=== PATIENT | male | born 1960 | race Caucasian/White ===

== ENCOUNTER 2020-02-20 07:41 | Outpatient (CLI) | payer BC, SELFPAY ==
--- NOTE | 2020-02-20 08:00 | USCV_ITS ---
Anup Romeo Age: 59 Gender: M : 1960 Exam Date: 02/20/2020 07:41 Ordering Phys: Trish Machado MD ([email or web address]) Technologist: Ana Maria Pate Exam Location: [facility] [place] Indication: CHF BP: 142 / 80 HR: 71 Rhythm: Sinus Technical Quality: Adequate MEASUREMENTS (Male / Female) Normal Values 2D ECHO LV Diastolic Diameter PLAX 4.7 cm 4.2 - 5.9 / 3.9 - 5.3 cm LV Systolic Diameter PLAX 3.8 cm LV Chamber Size 4.6 cm IVS Diastolic Thickness 1.1 cm 0.6 - 1.0 / 0.6 - 0.9 cm IVS Systolic Thickness 1.3 cm LVPW Diastolic Thickness 1.7 cm 0.6 - 1.0 / 0.6 - 0.9 cm LVPW Systolic Thickness 1.8 cm RV Chamber Size 3.1 cm LVOT Diameter 2.0 cm LV Ejection Fraction 2D Teich 38.5 % LV Ejection Fraction MOD 2C 36.3 % LV Ejection Fraction 2C AL 43.2 % LA Diameter 3.3 cm LA Width 3.5 cm LA Height 5.0 cm RA Width 3.7 cm RA Height 4.2 cm Aorta at Sinotubular Diameter 3.2 cm M-MODE LV Diastolic Diameter MM 6.0 cm 4.2 - 5.9 / 3.9 - 5.3 cm LV Systolic Diameter MM 4.2 cm LV Ejection Fraction MM Teich 57.9 % IVS Diastolic Thickness MM 1.0 cm 0.6 - 1.0 / 0.6 - 0.9 cm IVS Systolic Thickness MM 1.4 cm LVPW Diastolic Thickness MM 1.1 cm 0.6 - 1.0 / 0.6 - 0.9 cm LVPW Systolic Thickness MM 1.2 cm Aortic Annulus Diameter 3.1 cm LA Ao Ratio MM 1.1 MV E Point Septal Separation 1.2 cm DOPPLER AV Peak Velocity 108.0 cm/s LVOT Peak Velocity 93.0 cm/s AV Area Cont Eq vti 2.9 cm squared AV Area Cont Eq pk 2.8 cm squared MV Area PHT 3.3 cm squared Mitral E to A Ratio 1.0 MV E' Velocity 11.0 cm/s Mitral E to MV E' Ratio 7.3 Mitral E to LV E' Lateral Ratio 6.8 Mitral E to LV E' Septal Ratio 8.0 TV Peak E Velocity 55.0 cm/s Right Atrial Pressure 3.0 mmHg PV Peak Velocity 58.0 cm/s RV Acceleration Time 0.2 s RV Ejection Time 0.4 s RV AcT/ET 0.5 FINDINGS Left Ventricle Normal left ventricular size and wall thickness. Moderately decreased left ventricular systolic function. Left ventricular ejection fraction is estimated at 40%. Moderate hypokinesis of basal to mid inferolateral and anterolateral hill. Normal diastolic function. Right Ventricle Normal right ventricular size and systolic function. Tricuspid valve regurgitant jet is inadequate for estimation of right ventricular systolic pressure. Right Atrium Normal right atrial size. Right atrial pressure estimated at 3 mmHg. Left Atrium Normal left atrial size. Mitral Valve Structurally normal mitral valve. No mitral valve stenosis. Trace mitral valve regurgitation. Aortic Valve Structurally normal trileaflet aortic valve. No aortic valve stenosis. No aortic valve regurgitation. Tricuspid Valve Structurally normal tricuspid valve. Pulmonic Valve Structurally normal pulmonic valve. No pulmonary valve stenosis. Trace pulmonary valve regurgitation. Pericardium No pericardial effusion. Normal-sized inferior vena cava. Aorta Normal-sized aortic root. CONCLUSIONS 1. Normal left ventricular size. Moderately decreased left ventricular systolic function. Left ventricular ejection fraction is estimated at 40%. Moderate hypokinesis of basal to mid inferolateral and anterolateral hill. Normal diastolic function. 2. Normal right ventricular size and systolic function. 3. Right atrial pressure estimated at 3 mmHg. 4. No significant valvular abnormality. 5. No prior similar studies to compare. Trish Machado MD (Electronically Signed) Final Date: 21 February 2020 13:10 S
== END 2020-02-20 07:42 | disposition home or self-care (01) ==
LOC: RAD 07:44
PROVIDERS: Visit Provider Internal Medicine Cardiovascular Disease
DX: I50.9 Heart failure, unspecified (principal)
CPT/HCPCS: 93306

== ENCOUNTER 2021-04-26 20:28 | Emergency (ER) | payer BC, MEDICAID, SELFPAY ==
[2021-04-26 21:18] VITALS: BP 199/135; PULSE 126; RESP 18; O2SAT 96; BMI 31.4
[2021-04-26 22:33] VITALS: BP 188/116; PULSE 109; RESP 16; O2SAT 95
[2021-04-27 00:11] VITALS: BP 202/119; PULSE 102; RESP 20; O2SAT 98
--- NOTE | 2021-04-27 00:34 | ED_ITS ---
HPI - General Adult General: Chief complaint: General Medical Stated complaint: Rt Shoulder Pain Time Seen by Provider: 04/27/21 00:16 Source: patient Mode of arrival: ambulatory Limitations: no limitations History of Present Illness: HPI narrative: Patient is a nice 60-year-old male presents to ED today for evaluation of right shoulder pain. Patient tells me approximately 1 week ago he had a very heavy (greater than 50 pound) box fall directly onto his right shoulder. Patient states since that time he has had fairly significant pain in the extremity. He does report a previous clavicular fracture several years ago that was nonsurgical. He states pain is radiating into the right side of his neck. Of note patient was extremely hypertensive upon arrival. He states he does have a history of hypertension and takes medication for this. He has not taken his evening dose of metoprolol. He does not complain of a headache, visual changes, chest pain, shortness of breath, difficulty breathing. Onset (ago): day(s) Location: upper extremity Pain Consistency: constant Relieving factors: none Exacerbating factors: movement Associated symptoms: Reports no associated symptoms; Deny chest pain, confusion, dyspnea, headache(s), malaise, rash, palpitations or syncope Treatments prior to arrival: NSAID and other (Acetaminophen) Review of Systems Const: Denies: fever(s), chills, body aches, fatigue or malaise Eyes: Denies: change in vision, blurry vision, photophobia, floaters or seeing flashes ENMT: Denies: throat pain or odynophagia Card: Denies: chest pain, palpitations, irregular heart rhythm, edema, lightheadedness, syncope or pre-syncope Resp: Denies: dyspnea GI: Denies: abdominal pain : Denies: flank pain Musc: Reports: neck pain (R sided), joint pain (R shoulder) and limited range of motion; Denies: back pain, extremity pain, extremity swelling, joint swelling, joint redness or joint warmth Skin/Breast: Denies: rash or new lesions Neuro: Denies: headache(s), numbness in extremities, weakness in extremities, sensory changes, lack of coordination, difficulty walking, frequent falls, dizziness, vertigo, confusion, Slurred speech present or difficulty communicating thoughts [facility] ED PFSH: Medical History (Updated 04/27/21 @ 02:10 by ELIANA Sandhu) Coronary artery disease Diabetes Dyslipidemia HTN (hypertension) Surgical History S/P coronary artery stent placement 2019 Distal RCA Family History Other CAD (coronary artery disease) Cancer Hypertension Thyroid disease Social History Smoking and tobacco status: current every day smoker cigarettes and e- cigarettes Alcohol intake: never Physical Exam Const: COMMON NORMALS: no acute distress, patient oriented x3, no limitations and alert GENERAL APPEARANCE: cooperative NUTRITIONAL APPEARANCE: overweight ORIENTATION/CONSCIOUSNESS: Yes awake, Yes oriented to person, Yes oriented to place and Yes oriented to time HENMT: COMMON NORMALS: normocephalic and atraumatic HEAD & SCALP: normocephalic and atraumatic Neck/C-Spine: CERVICAL SPINE: Yes cervical ROM normal, No Cervical spine tenderness, No step off deformity, Yes Paracervical muscle tenderness right, No Paracervical spasm and Yes Trapezius muscle tenderness Back/Pelvis: COMMON NORMALS: thoracic and lumbar spine normal to inspection, no thoracic nor lumbar tenderness and thoraco-lumbar ROM normal Extremity: GENERAL: Yes normal exam except as noted RIGHT UPPER EXTREMITY: Yes shoulder joint (TTP AC joint) Right shoulder: Yes Right shoulder joint ROM exam (limited past 90 deg flexion, abduction; reports pain with IR/ER) and Yes Right shoulder joint neurovascular exam (normal) Neuro: VISHNU COMA SCALE: document GCS findings [place] coma scale eye opening: Spontaneous Vishnu coma scale verbal response: Orientated [place] coma scale motor response: Obey commands Vishnu coma scale total score: 15 COMMON NORMALS: patient oriented x3, CN's II-XII intact bilaterally, moves all extremities, no focal motor deficits and no sensory deficits noted SENSORIUM/ORIENTATION: Yes alert, Yes oriented to person, Yes oriented to place and Yes oriented to time Skin: COMMON NORMALS: no rashes or lesions noted GENERAL SKIN EXAM: no rashes or lesions noted TRAUMA: no lacerations or abrasions Course Vital Signs: Vital signs: Vital Signs Pulse Rate 109 H 04/27/21 01:26 Respiratory Rate 20 H 04/27/21 01:29 Blood Pressure 187/121 04/27/21 01:26 Pulse Oximetry 97 04/27/21 01:26 MDM - General Adult MDM Narrative: Medical decision making narrative: Patient here for right shoulder pain after heavy box fell directly onto it approximately a week ago. XR negative. Patient does not have a PCP. We will have case management set him up with one for further evaluation to see if physical therapy, MRI, or referral to orthopedics as indicated. He is requesting something for discomfort as he has tried OTC Tylenol/Motrin without much relief. Of note patient's BP has been very elevated here. He does state he did not take his evening metoprolol. This was given here. Recommend keeping a blood pressure log and following up with cardiology/Dr. Machado who prescribes his HTN medications if readings continue to be elevated. He does not complain of a headache, visual changes, chest pain, shortness of breath, difficulty breathing. Return to ED precautions given. Imaging Data^: XR R shoulder: Radiologist's impression: [address] [address] XRay Report Signed Patient: Anup Romeo Unit #: [id number] : 1960 Age/Sex: 60 / M ADM Date: 04/26/21 Loc: ER Room/Bed: Attending Dr: Ordering Provider/Ordering MD: Estefania Alves Date of Service: 04/27/21 Procedure(s): XR shoulder RT min 2V* [id number] Accession Number(s): [id number] Report Number: [id number] PROCEDURE INFORMATION: Exam: XR Right Shoulder Exam date and time: 04/27/2021 12:33 AM Age: 60 years old Clinical indication: Patient HX: Patient was at work and lifted a 50 pound box onto his right shoulder and strained it. C/O pain. ; Additional info: Injury/pain TECHNIQUE: Imaging protocol: XR Right shoulder. Views: 2 or more views. COMPARISON: No relevant prior studies available. FINDINGS: Bones/joints: There is no acute fracture or dislocation. If symptoms persist, follow-up imaging in several days may be useful to exclude an occult fracture. No other significant acute bone or joint abnormality. Old/healed fracture of the mid to distal right clavicle. Mild degenerative/arthritic changes involving the right AC joint. Mild inferior bony spurring. Soft tissues: No significant acute finding. XR/XR shoulder RT min 2V* [id number] IMPRESSION: 1. No acute fracture or dislocation. 2. Other findings discussed above. Dictated By: Gio Peoples MD Signed By: Gio Peoples MD Signed Date/Time: 04/27/21124 DD/ 2 Discharge Plan Discharge Patient Disposition: Home Clinical Impression: Injury of shoulder, right Qualifiers: Encounter type: initial encounter Qualified Code(s): S49.91XA - Unspecified injury of right shoulder and upper arm, initial encounter HTN (hypertension) Qualifiers: Hypertension type: unspecified Qualified Code(s): I10 - Essential (primary) hypertension Condition: Stable Prescriptions: New tramadol 50 mg tablet 50 mg PO Q6H PRN (Reason: pain) Qty: 14 RF: 0 No Action metoprolol succinate 100 mg tablet extended release 24 hr 100 mg PO DAILY Qty: 90 RF: 3 glipizide 10 mg tablet extended release 24hr 10 mg PO DAILY RF: 0 aspirin [Aspir-81] 81 mg tablet,delayed release (DR/EC) 81 mg PO DAILY RF: 0 lisinopril 30 mg tablet 30 mg PO DAILY Qty: 90 RF: 3 clopidogrel 75 mg tablet 75 mg PO DAILY Qty: 90 RF: 2 atorvastatin 40 mg tablet See Rx Instructions .ROUTE .COMPLEX Qty: 90 RF: 0 Discharge Orders: Discharge ED (Routine); Ordered 04/27/21 Ordered By: Estefania Alves Patient Instructions: Hypertension (ED) Activity Restrictions/Additional Instructions: As we discussed you need to follow-up with primary care as they can further evaluate your right shoulder discomfort and decide further treatment/intervention that could include physical therapy, referral to orthopedics, MRI, or conservative treatment. As we discussed please keep a blood pressure log as your blood pressure was extremely elevated here. If blood pressure remains elevated you need to contact your criminal justice program director who prescribes these medications for further adjustments. Coding Level of Care Code ED Full Stack Engineer for Radha Fwd Exam Detailed
[2021-04-27 01:26] VITALS: BP 187/121; PULSE 109; RESP 20; O2SAT 97
[2021-04-27 01:29] VITALS: RESP 20
[2021-04-27] MEDS: metoprolol succinate ER (24 HR) 100 mg Tablet PO (01:29)
[2021-04-27] MEDS: morphine 4 mg/mL SDV 1 mL IM (01:29)
[2021-04-27 02:00] VITALS: BP 159/102; PULSE 89; RESP 18; O2SAT 99
[2021-04-27] MEDS: HYDROcodone-acetaminophen 5-325 mg Tablet 1 TAB PO (02:20)
[2021-04-27 02:35] VITALS: BP 159/102; PULSE 98; RESP 18; O2SAT 99
== END 2021-04-27 02:30 | disposition home or self-care (01) ==
PROVIDERS: Emergency Provider Physician Assistant
DX: S49.91XA Unspecified injury of right shoulder and upper arm, initial encounter (principal); E11.9 Type 2 diabetes mellitus without complications; I10 Essential (primary) hypertension; E78.5 Hyperlipidemia, unspecified; I25.10 Atherosclerotic heart disease of native coronary artery without angina pectoris; F17.210 Nicotine dependence, cigarettes, uncomplicated; Z79.84 Long term (current) use of oral hypoglycemic drugs; Z79.82 Long term (current) use of aspirin; Z95.5 Presence of coronary angioplasty implant and graft; W20.8XXA Other cause of strike by thrown, projected or falling object, initial encounter
CPT/HCPCS: 73030; 96372; 99283; J2270

== ENCOUNTER 2021-05-17 07:15 | Outpatient (CLI) | payer OTHER, BC, SELFPAY ==
--- NOTE | 2021-05-17 08:00 | MR_ITS ---
WS: [id number] MRI RIGHT SHOULDER HISTORY: Injury two weeks ago increasing pain. COMPARISON: Radiographs 04/27/2021 TECHNIQUE: Multiplanar sequences of the shoulder joint are submitted. Marked AC joint hypertrophy. Soft tissue and bony encroachment upon the supraspinatus muscle and tend on just medial to the humeral head. There is edema within the distal clavicle and the acromion and ma rked soft tissue thickening surrounding the AC joint. Distal undersurface of the acromion encroaches upon the supraspinatus tendon causing narrowing of the acromiohumeral distance. No os acromion. Bicep s tendon remains in normal position. No labral tear. No muscle atrophy or edema within the rotator cuff. No rotator cuff tears or tendinopathy. There is a small amount of subchondral edema in the posterior lateral humeral head. MR/MR shoulder RT wo con* [id number] IMPRESSION: 1. Severe AC joint osteoarthritis with encroachment upon the supraspinatus mus sreekanth and tendon. 2. No rotator cuff tear. 3. Moderate subacromial impingement upon the supraspinatus tendon over the hum eral head.
== END 2021-05-17 07:16 | disposition home or self-care (01) ==
PROVIDERS: PCP Family Medicine Adult Medicine; Visit Provider Family Medicine Adult Medicine
DX: S49.91XA Unspecified injury of right shoulder and upper arm, initial encounter (principal); X58.XXXA Exposure to other specified factors, initial encounter; M19.011 Primary osteoarthritis, right shoulder
CPT/HCPCS: 73221

== ENCOUNTER → 2021-11-22 10:25 | Outpatient (BNVA) | payer BC, SELFPAY | PROVIDERS: PCP Family Medicine Adult Medicine; Visit Provider Internal Medicine Cardiovascular Disease | DX: I25.10 Atherosclerotic heart disease of native coronary artery without angina pectoris (principal); E78.5 Hyperlipidemia, unspecified; I25.5 Ischemic cardiomyopathy | CPT/HCPCS: 36415; 80053; 80061; 83036; 84443; 85025 ==

== ENCOUNTER → 2022-02-14 09:43 | Outpatient (BNVA) | payer BC, SELFPAY | PROVIDERS: PCP Family Medicine Adult Medicine; Visit Provider Family Medicine Adult Medicine | DX: M25.572 Pain in left ankle and joints of left foot (principal) | CPT/HCPCS: 73610 ==

== ENCOUNTER 2022-04-22 07:02 | Outpatient (CLI) | payer SELFPAY ==
[2022-04-22 07:38] VITALS: BMI 29.8
--- NOTE | 2022-04-22 07:43 | ECG_ITS ---
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 Interpretive Statements NAME OF STUDY: TREADMILL STRESS TEST INDICATION: Clearance for work required Baseline blood pressure of 154/103 mm Hg, heart rate of 73 beats per minute and oxygen saturation 94%. EKG showed normal sinus rhythm, normal axis with possible old anteroseptal infarct. The patient exercised for 6 minutes on a standard [place] protocol. Patient attained a maximum heart rate of 122 beats per minute(75% of the maximum predicted heart rate) with a blood pressure at the peak exercise of 181/108 mm Hg and oxygen saturation 96%. The EKG at the peak exercise revealed sinus tachycardia with no significant ST-T wave changes. Patient did not have any chest pain or any significant arrhythmis with the exercise During the recovery phase, there is interventricular conduction (LBBB like morphology). Frequent isolated PVCs noted in recovery. Blood pressure at the end of the recovery phase was 159/100 mm Hg with a heart rate of 77 beats per minute and oxygen saturation 97%. CONCLUSION: 1. Normal EKG response to treadmill exercise with submaximal stress. Patient only reached 75% of maximum predicted heart rate. 2. No exercise-induced chest pain or cardiac arrhythmia. 3. Fair exercise tolerance, attained a maximum of 7 METs. Maximum VO2 of 24.5 mL/kg/min. 4. Baseline hypertension with normal response to exercise. 5. Patient developed interventricular conduction (LBBB like morphology) in early recovery that resolved by end of recovery. Electronically Signed On 04-23-2022 13:14:35 CDT by Trish Machado M.D. [id number]
[2022-04-22 08:11] VITALS: BP 159/100; PULSE 79
== END 2022-04-22 07:03 | disposition home or self-care (01) ==
PROVIDERS: PCP Family Medicine Adult Medicine; Visit Provider Family Medicine Adult Medicine
DX: Z01.89 Encounter for other specified special examinations (principal)
CPT/HCPCS: 93017

== ENCOUNTER → 2023-05-13 11:02 | Outpatient (BNVA) | payer OTHER, SELFPAY | PROVIDERS: PCP Family Medicine Adult Medicine; Visit Provider Family Medicine Adult Medicine | DX: I10 Essential (primary) hypertension (principal); E11.9 Type 2 diabetes mellitus without complications; D69.6 Thrombocytopenia, unspecified; E78.5 Hyperlipidemia, unspecified | CPT/HCPCS: 80053; 80061; 83036; 83721; 85025 ==

== ENCOUNTER → 2023-09-23 13:59 | Outpatient (BNVA) | payer OTHER, SELFPAY | PROVIDERS: PCP Family Medicine Adult Medicine; Visit Provider Family Medicine Adult Medicine | DX: I10 Essential (primary) hypertension; I25.10 Atherosclerotic heart disease of native coronary artery without angina pectoris; E78.5 Hyperlipidemia, unspecified; E11.43 Type 2 diabetes mellitus with diabetic autonomic (poly)neuropathy; K31.84 Gastroparesis; I25.83 Coronary atherosclerosis due to lipid rich plaque; Z85.71 Personal history of Hodgkin lymphoma | CPT/HCPCS: 80053; 83036 ==

== ENCOUNTER 2023-09-25 20:25 | Emergency (ER) | payer OTHER, SELFPAY ==
[2023-09-25 20:32] VITALS: BP 133/77; PULSE 112; RESP 16; TEMP 36.7; O2SAT 96
--- NOTE | 2023-09-25 22:46 | XRR_ITS ---
PROCEDURE INFORMATION: Exam: XR Right Ribs with PA Chest Exam date and time: 09/25/2023 10:51 PM Age: 63 years old Clinical indication: Chest wall pain; Right; Prior surgery; Surgery date: 6+ months; Patient HX: Lower RT anterior rib pain after blunt trauma; Smoker; HX cardiac stent placement (2017), leukemia TECHNIQUE: Imaging protocol: Radiologic exam of the right ribs with PA chest. Views: 3 views COMPARISON: MR shoulder RT wo con* [id number] 05/17/2021 8:00 AM FINDINGS: Lungs: Unremarkable. No consolidation. Pleural spaces: Unremarkable. No pleural effusion. No pneumothorax. Heart/Mediastinum: Unremarkable. No cardiomegaly. Bones/joints: No acute displaced rib fracture seen. Nondisplaced rib fractures may not be detectable by radiograph. XR/XR ribs RT mn 3V w CXR1V [id number] IMPRESSION: No acute findings.
[2023-09-25 23:35] VITALS: BP 115/72; PULSE 107; O2SAT 94
[2023-09-25] MEDS: HYDROcodone-acetaminophen 5-325 mg Tablet 1 TAB PO (23:56)
[2023-09-26 00:40] VITALS: BP 123/76
--- NOTE | 2023-09-26 01:07 | ED_ITS ---
HPI - General Adult General: Chief complaint: General Medical Stated complaint: Rt side Pain Time Seen by Provider: 09/25/23 22:05 Source: patient Mode of arrival: ambulatory Limitations: no limitations History of Present Illness: Patient presents emergency department today for evaluation treatment of right anterior rib pain. Patient states that yesterday he was trying to help move some plastic tubs. He states he was stacking them and while trying to toss 1 on top of the stack, it fell backwards in the corner of the plastic tub impacted his right anterior ribs. Patient complains of discomfort since that time in this area especially with deep breathing and certain movement. He reports taking his NSAID and baclofen without noticeable improvement of his pain. He is concerned about possible broken ribs. Triage note also indicates issues with the patient's blood sugar but, patient states that he does not care about his blood sugars, he just wanted us to know that he has had some abnormal blood sugars recently-just in case we are planning on taking lab work. Chart review does show patient has had poorly controlled blood sugars and was seen by his primary care just a couple days ago for this. It appears he is being monitored and followed for this. Review of Systems General: Reports: 10 or more systems reviewed and unremarkable except in HPI and below PFSH ED PFSH: Medical History Muscle strain of right shoulder region Diabetic gastroparesis Thrombocytopenia CKD stage 2 due to type 2 diabetes mellitus Uncontrolled diabetes with stage 2 chronic kidney disease GFR 60-89 Psychiatric care Injury of right shoulder 1994 with chronic pain since History of Hodgkin's lymphoma Coronary artery disease Stent 2018, Past AR, CHF LVEF 40% echo 02/20/2020 Dyslipidemia Ischemic cardiomyopathy Coronary artery disease HTN (hypertension) Diabetes Surgical History History of surgical removal of testicle right testes for Testicular cancer in 1994 S/P coronary artery stent placement 2019 Distal RCA Family History Other CAD (coronary artery disease) Cancer Hypertension Thyroid disease Social History Smoking and tobacco/nicotine status: current every day tobacco/nicotine user (stopped smoking cigarettes and started vaping) cigarettes and e-cigarettes Alcohol intake: never Substance/Drug Use: never Physical Exam Const: COMMON NORMALS: no acute distress, patient oriented x3, healthy appearing and alert HENMT: COMMON NORMALS: normocephalic, atraumatic, hearing grossly normal bilaterally, Normal external nose present and moist oral mucous membranes HEAD & SCALP: normocephalic and atraumatic NOSE: Normal external nose present Eye: COMMON NORMALS: Equal, round and reactive pupils present, EOMs intact bilaterally and conjunctivae normal CONJUNCTIVA: Yes conjunctivae normal PUPIL: Yes Equal, round and reactive pupils present Neck/C-Spine: COMMON NORMALS: full ROM, no meningeal signs and no JVD Lymph: LYMPHATIC: no lymphadenopathy noted Chest: OTHER: Right anterior rib pain approximately 5 through 8. No obvious abrasions or hematomas present. Resp: COMMON NORMALS: normal respiratory effort, No retractions and No use of accessory muscles Cardio: COMMON NORMALS: no JVD, regular rate and Peripheral pulses 2+ throughout RATE: regular rate PERIPHERAL PULSES: Peripheral pulses 2+ throughout : COMMON NORMALS: Yes no CVA tenderness BLADDER/KIDNEY EXAM: Yes no CVA tenderness Back/Pelvis: COMMON NORMALS: no CVA tenderness, thoraco-lumbar ROM normal and straight leg raise negative bilaterally Extremity: COMMON NORMALS: normal to inspection, full ROM, no joint enlargement and no calf tenderness GENERAL: Yes normal exam except as noted Neuro: COMMON NORMALS: patient oriented x3, CN's II-XII intact bilaterally, moves all extremities, no focal motor deficits and no sensory deficits noted SENSORIUM/ORIENTATION: Yes alert MENINGEAL SIGNS: Yes no meningeal signs Course Vital Signs: Vital signs: Vital Signs Temperature 98.1 F 09/25/23 20:32 Pulse Rate 107 H 09/25/23 23:35 Respiratory Rate 16 09/25/23 20:32 Blood Pressure 123/76 09/26/23 00:40 Pulse Oximetry 94 09/25/23 23:35 [facility] - General Adult Medical Decision Making Patient's rib x-rays are read negative for signs of any fractures or underlying pulmonary injury. Discussed with patient that rib contusions can still be extremely painful for many days. Patient has muscle relaxer and NSAID at home. He was given a single dose of Ethan here in the emergency department as he has family with him to drive him home. We discussed alternating ice and heat for comfort as well. Informational handout about rib contusions provided. He is not to wrap or bind his ribs and we discussed the importance of taking multiple deep breaths several times an hour during the day to keep lung tissue fully expanded. Patient to follow-up with his primary care next week for recheck if needed. Return precautions given. 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 Went over signs and symptoms of ketoacidosis and hyperglycemia for which patient needs to seek immediate medical assistance-whether that be here locally or while he was on the road. Patient verbalizes understanding and agreement to treatment plan. Differential Diagnosis DDx: Rib fracture, rib contusion, pulmonary contusion, pneumothorax Lab Data Radiology Impressions Ribs X-Ray 09/25/23 22:46 IMPRESSION: No acute findings. All radiology interpretation(s) finalized by discharge Discharge Plan Discharge Patient Disposition: Home Clinical Impression: Contusion of rib on right side Qualifiers: Encounter type: initial encounter Qualified Code(s): S20.211A - Contusion of right front wall of thorax, initial encounter Condition: Stable Prescriptions: No Action Januvia 100 mg tablet 100 mg PO DAILY Qty: 30 3RF Jardiance 25 mg tablet 25 mg PO DAILY Qty: 30 3RF glipizide 10 mg tablet extended release 24hr 10 mg PO DAILY Qty: 30 3RF lisinopril 40 mg tablet 40 mg PO DAILY Qty: 30 5RF metformin 1,000 mg tablet 1,000 mg PO BID Qty: 180 1RF clopidogrel 75 mg tablet 75 mg PO DAILY Qty: 90 2RF atorvastatin 80 mg tablet 80 mg PO DAILY Qty: 90 1RF metoclopramide HCl 10 mg tablet 10 mg PO .q ac PRN (Reason: nausea/epigastric pain) Qty: 90 5RF baclofen 20 mg tablet 20 mg PO BID Qty: 60 0RF celecoxib 200 mg capsule 200 mg PO BID PRN (Reason: pain) Qty: 60 1RF (DME) glucometer generic with strips and supplies See Rx Instructions .Route .MEDSUPPLY Qty: 1 0RF Rx Instructions: As directed once a day at different times for glucose monitoring Discharge Orders: Discharge ED (Routine); Ordered 09/26/23 Ordered By: Yuly Warren Referrals: Vega Pate MD [Primary Care Provider] - Discharge Diet: Usual diet Discharge Activity: Increase activity as tolerated Patient Instructions: Hyperglycemia, Diabetic Ketoacidosis (DC), Rib Contusion (ED) Activity Restrictions/Additional Instructions: X-ray today is negative for signs of rib fracture. However, this does not mean that there is not an injury. You most likely have sustained a rib contusion which can often be as painful as rib fracture for the first several days. We encourage you to apply heating pads and ice packs to the area for comfort. Continue taking your NSAIDs and muscle relaxers. Do not wrap or bind the ribs as this can lead to collapsing of the ends of the lung tissue which often leads to pneumonias. In fact, we recommend making it a point to take multiple deep full breaths several times an hour throughout the day. As we discussed, your evaluation with your doctor a couple days ago revealed significantly elevated glucose readings. Continue to closely monitor your glucose on the road. If for any reason you show signs of hypoglycemia or ketoacidosis you need to be seen at the closest emergency facility as soon as possible. I have included information about ketoacidosis and hyperglycemia for you to look over. Coding Level of Care Code ED Electronic Technician for Radha Campos
== END 2023-09-26 00:42 | disposition home or self-care (01) ==
PROVIDERS: Emergency Provider Physician Assistant; PCP Family Medicine Adult Medicine
DX: S20.211A Contusion of right front wall of thorax, initial encounter (principal); Z79.84 Long term (current) use of oral hypoglycemic drugs; Z79.02 Long term (current) use of antithrombotics/antiplatelets; F17.290 Nicotine dependence, other tobacco product, uncomplicated; E11.22 Type 2 diabetes mellitus with diabetic chronic kidney disease; I12.9 Hypertensive chronic kidney disease with stage 1 through stage 4 chronic kidney disease, or unspecified chronic kidney disease; N18.2 Chronic kidney disease, stage 2 (mild); I25.5 Ischemic cardiomyopathy; I25.10 Atherosclerotic heart disease of native coronary artery without angina pectoris; Z85.71 Personal history of Hodgkin lymphoma; E78.5 Hyperlipidemia, unspecified; W20.8XXA Other cause of strike by thrown, projected or falling object, initial encounter
CPT/HCPCS: 71101; 99283

== ENCOUNTER → 2023-11-27 08:24 | Outpatient (BNVA) | payer OTHER, SELFPAY | PROVIDERS: PCP Family Medicine Adult Medicine; Visit Provider Physician Assistant | DX: M75.41 Impingement syndrome of right shoulder; E11.9 Type 2 diabetes mellitus without complications | CPT/HCPCS: 36415; 73030; 80053; 80061; 82044; 83036 ==

== ENCOUNTER 2024-03-22 08:00 | Outpatient (CLI) | payer SELFPAY ==
[2024-03-22 09:02] LABS: Estmated Average Glucose 237; Hemoglobin A1C 9.9 % (4.0-6.0)
[2024-03-22 09:12] LABS: Creatinine Urine, Random 52 mg/dL (39-259); Microalbum Creatinine Ratio Ur 19 mg/dL (0-20); Microalbumin Random Urine 1 ug/dL (0-20)
[2024-03-22 09:18] LABS: Alanine Aminotransferase 53 U/L (0-41); Albumin Level 4.3 g/dL (3.5-5.2); Alkaline Phosphatase 94 U/L (40-130); Anion Gap 15.6 (5-19); Aspartate Amino Transferase 22 U/L (0-40); Blood Urea Nitrogen 20 mg/dL (8-23); Calcium 9.2 mg/dL (8.5-10.5); Carbon Dioxide 27 mmol/L (22-29); Chloride 105 mmol/L (98-107); Chol HDL Ratio 2.03 mg/dL (1.0-5.00); Cholesterol 77 mg/dL (0-200); Globulin 2.8 g/dL (1.3-4.6); Glomerular Filtration Rate 114.6 mL/min (90-130); Glucose 85 mg/dL (65-115); HDL Cholesterol 38 mg/dL (60-100); LDL Cholesterol Calculated 29 mg/dL (50-129); LDL HDL Ratio 0.76 RATIO (0.00-3.22); Osmolality Calculated 300 mOsm/kg (285-295); Potassium 3.6 mmol/L (3.5-5.1); Sodium 144 mmol/L (136-145); Total Bilirubin 0.5 mg/dL (0.15-1.2); Total Protein 7.1 g/dL (6.6-8.7); Triglycerides 51 mg/dL (0-150)
== END 2024-03-22 08:01 | disposition home or self-care (01) ==
LOC: LAB 08:02
PROVIDERS: PCP Family Medicine Adult Medicine; Visit Provider Internal Medicine
DX: E11.9 Type 2 diabetes mellitus without complications (principal)
CPT/HCPCS: 36415; 80053; 80061; 82044; 83036

== ENCOUNTER → 2024-06-07 12:38 | Outpatient (BNVA) | payer OTHER, SELFPAY | PROVIDERS: PCP Family Medicine Adult Medicine; Visit Provider Internal Medicine | DX: E11.9 Type 2 diabetes mellitus without complications (principal); E78.5 Hyperlipidemia, unspecified | CPT/HCPCS: 36415; 80053; 80061; 82044; 83036; 84681; 86337; 86341 ==

== ENCOUNTER 2024-08-02 13:02 | Outpatient (CLI) | payer OTHER, SELFPAY ==
--- NOTE | 2024-08-02 13:45 | MR_ITS ---
WS: [id number] MRI RIGHT SHOULDER HISTORY: right shoulder impingement COMPARISON: 05/17/2021, radiograph 11/27/2023 TECHNIQUE: Multiplanar sequences of the shoulder joint are submitted. Moderate to severe AC joint arthritis. Hypertrophic osteophytes from the distal clavicle and the rogelio cent acromion. Mild osteophyte encroachment upon the myotendinous portion of the supraspinatus. No si gnificant bursal distention. No significant subacromial impingement. Biceps tendon remains in normal position at the bicipital groove. No os acromion. Mild narrowing of the glenohumeral joint. Loss of cartilage and mild osteophytic ridging at the gleno id. No muscle atrophy or edema. Mild fraying of the distal articular surface of the supraspinatus ten don. Infraspinatus and subscapularis tendons are normal. No labral tear. Mild thickening and heterogeneity in the middle glenohumeral ligament. MR/MR shoulder RT wo con* [id number] IMPRESSION: 1. Moderate to severe AC joint arthritis. Similar to the examination of 021. Mild encroachment upon the myotendinous portion of the supraspinatus. 2. No rotator cuff tear. 3. No labral tear. 4. Normal position of the biceps tendon.
== END 2024-08-02 13:03 | disposition home or self-care (01) ==
LOC: RAD 13:03
PROVIDERS: PCP Family Medicine; Visit Provider Physician Assistant
DX: M19.011 Primary osteoarthritis, right shoulder (principal); M75.41 Impingement syndrome of right shoulder
CPT/HCPCS: 73221

== ENCOUNTER 2024-09-02 12:09 | Outpatient (CLI) | payer OTHER, SELFPAY ==
[2024-09-02 12:42] LABS: Basophils # 0.1 10^3/uL (0.0-0.1); Basophils % 0.9 %; Eosinophils # 0.2 10^3/uL (0.0-0.8); Eosinophils % 2.5 %; Hematocrit 42.9 % (37-53); Lymphocytes # 3.7 10^3/uL (0.8-4.8); Lymphocytes % 38.8 %; Mean Corpuscular Hemoglobin 32.7 pg (27-33); Mean Platelet Volume 11.4 fL (7.4-10.4); Monocytes # 0.8 10^3/uL (0.2-0.9); Monocytes % 7.9 %; Neutrophils # 4.73 10^3/uL (1.8-7.7); Neutrophils % 49.7 %; Nucleated Red Blood Cells % 0 %; Platelet Count 180 10^3/cmm (157-399); Red Blood Count 4.47 10^6/uL (3.85-5.65); Red Cell Distribution Width 11.8 % (12.1-15.1); White Blood Count 9.53 10^3/uL (3.29-11.43)
[2024-09-02 12:44] LABS: Bilirubin Urine Negative (Negative); Blood Urine Negative (Negative); Glucose Urine UA 3+ (Normal); Ketones Urine Trace (Negative); Leukocyte Esterase Urine Negative (Negative); Nitrate Urine Negative (Negative); Protein Urine Negative (Negative); Specific Gravity, Urine 1.029 (1.005-1.030); Urine Appearance Clear (CLEAR); Urine Color Yellow (Yellow); pH Urine 5.5 (5-7)
[2024-09-02 12:46] LABS: Add Urine Microscopic? YES; Bacteria Urine None Seen /hpf; Hyaline Casts Urine 0-4 /lpf; RBC Urine 0-2 /hpf (0-2); Squamous Epithelial Cell Urine 0-5 /hpf (0-5); WBC Urine 0-5 /hpf (0-5)
[2024-09-02 12:59] LABS: Alanine Aminotransferase 37 U/L (0-41); Albumin Level 4.4 g/dL (3.5-5.2); Alkaline Phosphatase 109 U/L (40-130); Anion Gap 15.9 (5-19); Aspartate Amino Transferase 18 U/L (0-40); Blood Urea Nitrogen 23 mg/dL (8-23); Calcium 9.2 mg/dL (8.5-10.5); Carbon Dioxide 28 mmol/L (22-29); Chloride 101 mmol/L (98-107); Globulin 2.6 g/dL (1.3-4.6); Glucose 140 mg/dL (65-115); Osmolality Calculated 298 mOsm/kg (285-295); Potassium 3.9 mmol/L (3.5-5.1); Sodium 141 mmol/L (136-145); Total Bilirubin 0.3 mg/dL (0.15-1.2)
== END 2024-09-02 12:10 | disposition home or self-care (01) ==
LOC: LAB 12:10
PROVIDERS: PCP Family Medicine; Visit Provider Student in an Organized Health Care Education/Training Program
DX: M75.41 Impingement syndrome of right shoulder (principal)
CPT/HCPCS: 36415; 80053; 81001; 85025

== ENCOUNTER 2024-09-06 08:40 | Outpatient (CLI) | payer OTHER, SELFPAY ==
--- NOTE | 2024-09-06 08:51 | XRR_ITS ---
PROCEDURE INFORMATION: Exam: XR Right Hip Exam date and time: 09/06/2024 8:59 AM Age: 64 years old Clinical indication: Hip pain; Bilateral; Patient HX: HX of lymphoma; Additional info: Right hip pain TECHNIQUE: Imaging protocol: Radiologic exam of the right hip. Views: 1 view hip with pelvis when performed. COMPARISON: No relevant prior studies available. FINDINGS: Bones/joints: Unremarkable. No acute fracture. No acute osseous or joint abnormality. No arthritic changes. Soft tissues: Unremarkable. XR/XR hip RT 2-3V wo/w pel* [id number] IMPRESSION: No acute findings.
--- NOTE | 2024-09-06 09:02 | XRR_ITS ---
PROCEDURE INFORMATION: Exam: XR Left Hip Exam date and time: 09/06/2024 9:06 AM Age: 64 years old Clinical indication: Hip pain; Left hip; Patient HX: HX of lymphoma; Additional info: Left hip pain TECHNIQUE: Imaging protocol: Radiologic exam of the left hip. Views: 2 or 3 views hip with pelvis when performed. COMPARISON: No relevant prior studies available. FINDINGS: Bones/joints: Unremarkable. No acute fracture. No arthritic changes. Soft tissues: Unremarkable. XR/XR hip LT 2-3V wo/w pel* [id number] IMPRESSION: The findings are normal.
== END 2024-09-06 08:41 | disposition home or self-care (01) ==
PROVIDERS: PCP Family Medicine; Visit Provider Student in an Organized Health Care Education/Training Program
DX: M25.551 Pain in right hip (principal); M25.552 Pain in left hip
CPT/HCPCS: 73502

== ENCOUNTER → 2024-09-29 12:30 | Outpatient (BNVA) | payer OTHER, SELFPAY | PROVIDERS: PCP Family Medicine; Visit Provider Internal Medicine | DX: E11.9 Type 2 diabetes mellitus without complications (principal); E11.43 Type 2 diabetes mellitus with diabetic autonomic (poly)neuropathy; K31.84 Gastroparesis; E78.5 Hyperlipidemia, unspecified; I25.10 Atherosclerotic heart disease of native coronary artery without angina pectoris; I25.83 Coronary atherosclerosis due to lipid rich plaque; E16.0 Drug-induced hypoglycemia without coma; T38.3X5A Adverse effect of insulin and oral hypoglycemic [antidiabetic] drugs, initial encounter; X58.XXXA Exposure to other specified factors, initial encounter | CPT/HCPCS: 36415; 80053; 80061; 82044; 83036 ==

== ENCOUNTER 2024-10-10 06:05 | Outpatient (CLI) | payer OTHER, SELFPAY ==
--- NOTE | 2024-10-10 06:16 | USCV_ITS ---
Anup Romeo Age: 64 Gender: M : 1960 Exam Date: 10/10/2024 06:25 Ordering Phys: Austin Kearney MD Technologist: [place]am [place] [facility] [place]: cp BP: 120 / 67 HR: 71 Rhythm: Sinus Technical Quality: Adequate MEASUREMENTS (Male / Female) Normal Values 2D ECHO LV Diastolic Diameter PLAX 5.2 cm 4.2 - 5.9 / 3.9 - 5.3 cm IVS Diastolic Thickness 1.4 cm 0.6 - 1.0 / 0.6 - 0.9 cm IVS Systolic Thickness 2.3 cm LVPW Diastolic Thickness 1.3 cm 0.6 - 1.0 / 0.6 - 0.9 cm LVPW Systolic Thickness 1.6 cm LVOT Diameter 2.0 cm LV Ejection Fraction 2D Teich 44.8 % LV Ejection Fraction MOD 4C 23.5 % LV Ejection Fraction MOD 2C 41.0 % LV Ejection Fraction 2C AL 44.1 % LA Diameter 3.7 cm RA Systolic Volume 4C AL 31.5 ml RA Systolic Volume 4C MOD 32.0 ml LA Sys Volume AL 56.4 cm cubed LA Sys Volume Index AL 29.3 cm cubed/m squared Aorta at Sinotubular Diameter 2.7 cm IVC Diameter 2.1 cm M-MODE LA Ao Ratio MM 1.1 AV Cusp Separation MM 2.2 cm DOPPLER AV Peak Velocity 82.0 cm/s LVOT Peak Velocity 64.0 cm/s AV Area Cont Eq vti 3.5 cm squared AV Area Cont Eq pk 2.5 cm squared MV Peak Velocity 268.7 cm/s MV Area PHT 3.4 cm squared Mitral E to A Ratio 0.6 TV Peak Velocity 153.5 cm/s TR Peak Velocity 199.0 cm/s TR Peak Gradient 15.8 mmHg TV Peak E Velocity 82.0 cm/s PV Peak Velocity 69.0 cm/s FINDINGS Left Ventricle Diffuse hypokinesis of the left ventricle with ejection fraction of 35-40 % (visual). Mildly dilated LV cavity.Grade I/IV diastolic dysfunction (abnormal relaxation filling pattern), normal to mildly elevated filling pressures. Right Ventricle The right ventricle is normal in size and function. Right Atrium The right atrium is normal in size. Left Atrium The left atrium is normal in size. Mitral Valve Mild to moderate mitral valve regurgitation. Aortic Valve Thickened aortic valve. Tricuspid Valve Trace tricuspid valve regurgitation. Pulmonic Valve No gross abnormalities noted Pericardium Normal pericardium without effusion. Aorta Normal ascending aorta dimension. IVC Normal IVC dimension with >50% respiratory change of the inferior vena cava. CONCLUSIONS Diffuse hypokinesis of the left ventricle with ejection fraction of 35-40 % (visual). Mildly dilated LV cavity.Grade I/IV diastolic dysfunction (abnormal relaxation filling pattern), normal to mildly elevated filling pressures. Mild to moderate mitral valve regurgitation. Thickened aortic valve. Trace tricuspid valve regurgitation. Estimated pulmonary artery peak systolic pressure, within normal limits There is no pericardial effusion. There are no intracardiac masses. Compared to the study from 02/20/2020, the ejection fraction appears to have slightly decreased from 40% to 35 to 40%. The LV cavity appears to be mildly dilated Dr Aly Richardson MD FACC (Electronically Signed) Final Date: 10 October 2024 09:56 S
== END 2024-10-10 06:06 | disposition home or self-care (01) ==
PROVIDERS: PCP Family Medicine; Visit Provider Family Medicine
DX: R07.9 Chest pain, unspecified (principal); R93.1 Abnormal findings on diagnostic imaging of heart and coronary circulation; I34.0 Nonrheumatic mitral (valve) insufficiency; I35.8 Other nonrheumatic aortic valve disorders; I51.7 Cardiomegaly
CPT/HCPCS: 93306

== ENCOUNTER → 2024-11-01 13:06 | Outpatient (BNVA) | payer OTHER, SELFPAY | PROVIDERS: PCP Family Medicine; Visit Provider Internal Medicine | DX: R07.9 Chest pain, unspecified (principal); I25.5 Ischemic cardiomyopathy; I25.10 Atherosclerotic heart disease of native coronary artery without angina pectoris; I10 Essential (primary) hypertension; E78.5 Hyperlipidemia, unspecified; E11.9 Type 2 diabetes mellitus without complications; F17.200 Nicotine dependence, unspecified, uncomplicated | CPT/HCPCS: 93005 ==

== ENCOUNTER → 2024-11-30 11:21 | Outpatient (BNVA) | payer BC, SELFPAY | PROVIDERS: PCP Family Medicine; Visit Provider Nurse Practitioner Family | DX: M54.10 Radiculopathy, site unspecified (principal); M25.551 Pain in right hip; M25.552 Pain in left hip; G89.29 Other chronic pain; M43.8X6 Other specified deforming dorsopathies, lumbar region; M51.379 Other intervertebral disc degeneration, lumbosacral region without mention of lumbar back pain or lower extremity pain; M47.897 Other spondylosis, lumbosacral region; M51.369 Other intervertebral disc degeneration, lumbar region without mention of lumbar back pain or lower extremity pain; M47.896 Other spondylosis, lumbar region; R93.7 Abnormal findings on diagnostic imaging of other parts of musculoskeletal system; M25.78 Osteophyte, vertebrae; I70.0 Atherosclerosis of aorta | CPT/HCPCS: 72110 ==

== ENCOUNTER 2024-12-28 08:08 | Outpatient (CLI) | payer BC, MEDICAID, SELFPAY ==
[2024-12-28 08:38] LABS: Estmated Average Glucose 154
[2024-12-28 08:41] LABS: Alanine Aminotransferase 52 U/L (0-41); Albumin Level 4.4 g/dL (3.5-5.2); Alkaline Phosphatase 139 U/L (40-130); Anion Gap 13.3 (5-19); Aspartate Amino Transferase 24 U/L (0-40); Blood Urea Nitrogen 30 mg/dL (8-23); Calcium 9.7 mg/dL (8.5-10.5); Carbon Dioxide 29 mmol/L (22-29); Chloride 102 mmol/L (98-107); Chol HDL Ratio 2.31 mg/dL (1.0-5.00); Cholesterol 104 mg/dL (0-200); Globulin 3.5 g/dL (1.3-4.6); Glucose 85 mg/dL (65-115); HDL Cholesterol 45 mg/dL (60-100); LDL Cholesterol Calculated 44 mg/dL (50-129); LDL HDL Ratio 0.98 RATIO (0.00-3.22); Osmolality Calculated 295 mOsm/kg (285-295); Potassium 4.3 mmol/L (3.5-5.1); Sodium 140 mmol/L (136-145); Total Bilirubin 0.4 mg/dL (0.15-1.2); Total Protein 7.9 g/dL (6.6-8.7); Triglycerides 73 mg/dL (0-150)
[2024-12-28 08:46] LABS: Creatinine Urine, Random 11 mg/dL (39-259); Microalbumin Random Urine 1 ug/dL (0-20)
[2024-12-28 08:48] LABS: Microalbum Creatinine Ratio Ur 91 mg/dL (0-20)
== END 2024-12-28 08:09 | disposition home or self-care (01) ==
PROVIDERS: PCP Family Medicine; Visit Provider Internal Medicine
DX: E11.9 Type 2 diabetes mellitus without complications (principal); E78.5 Hyperlipidemia, unspecified; E16.0 Drug-induced hypoglycemia without coma; T38.3X5A Adverse effect of insulin and oral hypoglycemic [antidiabetic] drugs, initial encounter; X58.XXXA Exposure to other specified factors, initial encounter
CPT/HCPCS: 36415; 80053; 80061; 82044; 83036

== ENCOUNTER 2025-02-10 09:50 | Outpatient (CLI) | payer BC, MEDICAID, SELFPAY ==
[2025-02-10 10:48] LABS: Alanine Aminotransferase 35 U/L (0-41); Albumin Level 4.3 g/dL (3.5-5.2); Alkaline Phosphatase 108 U/L (40-130); Aspartate Amino Transferase 18 U/L (0-40); Blood Urea Nitrogen 26 mg/dL (8-23); Calcium 9.3 mg/dL (8.5-10.5); Carbon Dioxide 28 mmol/L (22-29); Chloride 100 mmol/L (98-107); Globulin 3.1 g/dL (1.3-4.6); Glucose 89 mg/dL (65-115); Osmolality Calculated 290 mOsm/kg (285-295); Sodium 138 mmol/L (136-145); Total Bilirubin 0.4 mg/dL (0.15-1.2); Total Protein 7.4 g/dL (6.6-8.7)
[2025-02-10 10:50] LABS: Creatinine Urine, Random 57 mg/dL (39-259); Microalbum Creatinine Ratio Ur 18 mg/dL (0-20); Microalbumin Random Urine 1 ug/dL (0-20)
[2025-02-10 11:08] LABS: Estmated Average Glucose 169; Hemoglobin A1C 7.5 % (4.0-6.0)
== END 2025-02-10 09:51 | disposition home or self-care (01) ==
LOC: LAB 09:51
PROVIDERS: PCP Family Medicine; Visit Provider Internal Medicine
DX: E11.9 Type 2 diabetes mellitus without complications (principal); E11.43 Type 2 diabetes mellitus with diabetic autonomic (poly)neuropathy; K31.84 Gastroparesis; E78.5 Hyperlipidemia, unspecified; E16.0 Drug-induced hypoglycemia without coma; T38.3X5A Adverse effect of insulin and oral hypoglycemic [antidiabetic] drugs, initial encounter; I25.10 Atherosclerotic heart disease of native coronary artery without angina pectoris; I25.83 Coronary atherosclerosis due to lipid rich plaque
CPT/HCPCS: 36415; 80053; 82044; 83036

== ENCOUNTER → 2025-03-24 08:27 | Outpatient (BNVA) | payer BC, MEDICAID, SELFPAY | PROVIDERS: PCP Family Medicine; Visit Provider Physician Assistant | DX: M75.21 Bicipital tendinitis, right shoulder (principal); M19.011 Primary osteoarthritis, right shoulder; M75.41 Impingement syndrome of right shoulder | CPT/HCPCS: 73030 ==

== ENCOUNTER 2025-08-09 14:18 | Outpatient (CLI) | payer BC, MEDICAID, SELFPAY ==
--- NOTE | 2025-08-09 14:30 | MR_ITS ---
WS: [id number] MRI LUMBAR SPINE NONCONTRAST TECHNIQUE: Sagittal T1, T2 and STIR imaging. Axial T1 and T2 imaging. CLINICAL INFORMATION: M19.90 - Unspecified osteoarthritis, unspecified site COMPARISON: None. FINDINGS: Counting performed from the craniocervical junction. The first sacral segment is considered L5. L4 is partially sacralized. Recommend plain film correlation prior to surgical intervention. T12-L1: Moderate facet arthropathy. Spinal canal and foramen are patent. L1-L2: No significant disc bulging. Moderate facet arthropathy. Spinal canal and foramen are patent. L2-L3: Mild annular bulging. Narrowing of the subarticular recess bilaterally. Slight impingement of traversing L3 nerve roots. Moderate facet arthropathy. Mild RIGHT greater than LEFT foraminal narrowing. L3-L4: Broad-based central disc bulging with impingement of traversing L4 nerve roots bilaterally. Moderate facet arthropathy. Small RIGHT facet effusion. Foramen are patent. L4-L5: L4 is partially sacralized. Spinal canal and foramen appear patent. The first sacral segment considered L5 Visualized pelvic bony structures: Normal. Paravertebral soft tissues: Normal. MR/MR lumbar spine wo con* [id number] IMPRESSION: 1. Counting performed from the craniocervical junction. The first sacral segme nt is considered L5. L4 is partially sacralized. Recommend plain film correlati on prior to surgical intervention. 2. Disc bulging worse at L3-4 with impingement of the traversing L4 nerve root s bilaterally in the subarticular recess. Mild central canal stenosis. 3. Moderate facet arthropathy L3-4. 4. Mild annular bulge L2-3 with slight impingement subarticular recess bilater ally. Mild RIGHT greater than LEFT foraminal narrowing.
== END 2025-08-09 14:19 | disposition home or self-care (01) ==
LOC: RAD 14:20
PROVIDERS: PCP Family Medicine; Visit Provider Nurse Practitioner Family
DX: M51.16 Intervertebral disc disorders with radiculopathy, lumbar region (principal); M48.061 Spinal stenosis, lumbar region without neurogenic claudication; M47.816 Spondylosis without myelopathy or radiculopathy, lumbar region; M47.815 Spondylosis without myelopathy or radiculopathy, thoracolumbar region
CPT/HCPCS: 72148